=== PATIENT | female | born 1995 | race Caucasian/White ===

== ENCOUNTER 2020-07-27 10:50 | Emergency (ER) | payer SELFPAY ==
[~2020-07-27] VITALS: Ht 160 cm; Wt 68.0 kg
[2020-07-27] MEDS ORDERED: AMOX-430 PO (11:39)
[2020-07-27] MEDS ORDERED: IBUP-1955 PO (11:42)
--- NOTE | 2020-07-27 12:06 | NUR ---
Patient discharged to home in stable condition. Written and verbal after care instructions given. Patient verbalizes understanding of instruction.
[2020-07-27 12:08] VITALS: BP 112/79
== END 2020-07-27 12:09 | disposition home or self-care (01) ==
LOC: ER 10:54
DX: S80.811A Abrasion, right lower leg, initial encounter (principal); Z60.2 Problems related to living alone; W54.0XXA Bitten by dog, initial encounter; Y93.89 Activity, other specified; Y92.89 Other specified places as the place of occurrence of the external cause; Y99.8 Other external cause status